=== PATIENT | female | born 1950 | race American Indian/Alaskan Native ===

== ENCOUNTER 2016-08-27 23:05 | Inpatient (IN) | payer MEDICARE, OTHER ==
[2016-08-27 23:41] LABS: Basophils % (Auto) 0.5 % (0.0-1.8); Eosinophils % (Auto) 1.6 % (0.0-4.3); Hematocrit 40.5 % (30.3-42.9); Hemoglobin 13.5 gm/dl (10.1-14.3); Mean Corpuscular HGB Conc 33 % (30-34); Mean Corpuscular Hemoglobin 30 pg (28-32); Mean Corpuscular Volume 91 fl (79-97); Platelet Count 188 K/mm3 (140-440); Red Blood Count 4.48 M/mm3 (3.65-5.03); White Blood Count 4.8 K/mm3 (4.5-11.0)
[2016-08-28 00:03] LABS: Anion Gap 15 mmol/L; Blood Urea Nitrogen 11 mg/dL (7-17); Carbon Dioxide 27 mmol/L (22-30); Chloride 97.2 mmol/L (98-107); Glucose 118 mg/dL (65-100); Potassium 3.7 mmol/L (3.6-5.0); Sodium 135 mmol/L (137-145)
[2016-08-28 00:23] LABS: Bacteria,Urine 1+ /HPF (Negative); Bilirubin,Urine NEG (Negative); Blood,Urine SM (Negative); Ketones,Urine NEG (Negative); Leukocyte Esterase,Urine NEG (Negative); Mucus,Urine 2+ /HPF; Nitrite,Urine NEG (Negative); Protein,Urine <15 mg/dL mg/dL (Negative); Urobilinogen,Urine < 2.0 mg/dL (<2.0)
--- NOTE | 2016-08-28 06:16 | Emergency Department Report ---
ED Chest Pain HPI - General Chief Complaint: Chest Pain Stated Complaint: CHEST PAIN Time Seen by Provider: 08/28/16 06:11 Source: patient Mode of arrival: Ambulatory Limitations: No Limitations - History of Present Illness Initial Comments: Patient complains of anterior chest tightness which periodically radiates to both arms over the last week. This is her first medical contact. Became more persistent last night. She states that she takes isosorbide and goes to the [place]. She is status post a stent she thinks about 3 years ago. She states she has been here before but I do not find any record of this patient in the [employer] [facility] system. She does not have a quality control representative in this area other than at the [facility]. She does not complain of any acute shortness of breath at rest but states he has been sometimes dyspneic. He states that she's had some nausea and some sweating but nothing like that now. At this point she has mild residual pain only. MD Complaint: chest pain -: week(s) Onset: during rest Pain Location: substernal Pain Radiation: RUE, LUE Severity: mild, moderate Quality: pressure Consistency: intermittent Improves With: nothing Worsens With: nothing Context: other (history of PCI) re: nausea, dyspnea Other Symptoms: denies: cough, fever, syncope Treatments Prior to Arrival: none Aspirin use within the Past 7 Days: (1) Yes - Related Data On Oral Contraceptives: No Allergies Allergy/AdvReac Type Severity Reaction Status Date / Time No Known Allergies Allergy Unverified 02/16/16 12:56 DALIA score - Dalia Score Age > 65: (1) Yes Aspirin use within the Past 7 Days: (1) Yes 3 or more CAD Risk Factors: (0) No 2 or more Angina events in past 24 hrs: (1) Yes Known CAD with more than 50% Stenosis: (1) Yes Elevated Cardiac Markers: (0) No ST Deviation Greater than 0.5mm: (0) No DALIA Score: 4 ED Review of Systems ROS: Stated complaint: CHEST PAIN Other details as noted in HPI Constitutional: denies: chills, fever Eyes: denies: eye pain, eye discharge, vision change ENT: denies: ear pain, throat pain Respiratory: shortness of breath. denies: cough, wheezing Cardiovascular: chest pain. denies: palpitations Endocrine: no symptoms reported Gastrointestinal: nausea. denies: abdominal pain, vomiting, diarrhea Genitourinary: denies: urgency, dysuria, discharge Musculoskeletal: denies: back pain, joint swelling, arthralgia Skin: denies: rash, lesions Neurological: denies: headache, weakness, paresthesias Psychiatric: denies: anxiety, depression Hematological/Lymphatic: denies: easy bleeding, easy bruising ED Past Medical Hx - Past Medical History Previous Medical History?: Yes Hx Hypertension: Yes Hx Arthritis: Yes Additional medical history: sleep apnea, uses CPAP at home - Surgical History Additional Surgical History: History of coronary artery stent - Social History Substance Use Type: None ED Physical Exam - General Limitations: No Limitations General appearance: alert, in no apparent distress - Head Head exam: Present: atraumatic, normocephalic - Eye Eye exam: Present: normal appearance, PERRL, EOMI. Absent: scleral icterus - ENT ENT exam: Present: mucous membranes moist - Neck Neck exam: Present: normal inspection. Absent: tenderness, meningismus - Respiratory Respiratory exam: Present: normal lung sounds bilaterally. Absent: respiratory distress - Cardiovascular Cardiovascular Exam: Present: regular rate, normal rhythm. Absent: systolic murmur, diastolic murmur, rubs, gallop - GI/Abdominal GI/Abdominal exam: Present: soft, normal bowel sounds. Absent: distended, tenderness, guarding, rebound, rigid - Extremities Exam Extremities exam: Present: normal inspection - Back Exam Back exam: Present: normal inspection - Neurological Exam Neurological exam: Present: alert, oriented X3, CN II-XII intact. Absent: motor sensory deficit - Psychiatric Psychiatric exam: Present: normal affect, normal mood - Skin Skin exam: Present: warm, dry, intact, normal color. Absent: rash ED Course Vital Signs 08/27/16 08/28/16 08/28/16 23:20 05:54 06:00 Temperature 98.5 F Pulse Rate 72 65 66 Respiratory 20 10 L 12 Rate Blood Pressure 155/98 128/84 Blood Pressure 138/85 [Right] O2 Sat by Pulse 99 97 98 Oximetry 08/28/16 08/28/16 08/28/16 06:10 06:20 06:30 Temperature Pulse Rate 65 63 66 Respiratory 12 20 15 Rate Blood Pressure 128/84 128/84 128/84 Blood Pressure [Right] O2 Sat by Pulse 95 94 97 Oximetry 08/28/16 08/28/16 08/28/16 06:40 06:50 06:56 Temperature Pulse Rate 66 67 66 Respiratory 16 18 16 Rate Blood Pressure 128/84 128/84 Blood Pressure 128/84 [Right] O2 Sat by Pulse 97 96 97 Oximetry 08/28/16 08/28/16 07:00 07:10 Temperature Pulse Rate 63 64 Respiratory 9 L 12 Rate Blood Pressure 128/84 130/77 Blood Pressure [Right] O2 Sat by Pulse 98 97 Oximetry - Reevaluation(s) Reevaluation #1: Patient was clinically stable and only mildly symptomatic. Her workup so far was negative. She is admitted by Dr. Barlow to the hospitalist service. I will place cardiology consultation. She was given Lovenox aspirin and analgesia. 08/28/16 08:25 ED Medical Decision Making - Lab Data Result diagrams: 08/27/16 23:29 08/27/16 23:29 Laboratory Results - last 24 hr 08/27/16 08/27/16 08/27/16 23:29 23:29 23:53 WBC 4.8 RBC 4.48 Hgb 13.5 Hct 40.5 MCV 91 MCH 30 MCHC 33 RDW 13.0 L Plt Count 188 Lymph % (Auto) 42.0 H [place] % (Auto) 8.9 H Eos % (Auto) 1.6 Baso % (Auto) 0.5 Lymph # 2.0 [place] # 0.4 Eos # 0.1 Baso # 0.0 Seg Neutrophils % 47.0 Seg Neutrophils # 2.3 Sodium 135 L Potassium 3.7 Chloride 97.2 L Carbon Dioxide 27 Anion Gap 15 BUN 11 Creatinine 1.0 Estimated GFR > 60 BUN/Creatinine Ratio 11.00 Glucose 118 H Calcium 9.0 Troponin T < 0.010 Urine Color Yellow Urine Turbidity Clear Urine pH 5.0 Ur Specific [place] 1.018 Urine Protein <15 mg/dl Urine Glucose (UA) Neg Urine Ketones Neg Urine Blood Sm Urine Nitrite Neg Urine Bilirubin Neg Urine Urobilinogen < 2.0 Ur Leukocyte Esterase Neg Urine WBC (Auto) 4.0 Urine RBC (Auto) 3.0 U Epithel Cells (Auto) < 1.0 Urine Bacteria (Auto) 1+ Urine Mucus 2+ 08/28/16 08/28/16 02:27 05:24 WBC RBC Hgb Hct MCV MCH MCHC RDW Plt Count Lymph % (Auto) [place] % (Auto) Eos % (Auto) Baso % (Auto) Lymph # [place] # Eos # Baso # Seg Neutrophils % Seg Neutrophils # Sodium Potassium Chloride Carbon Dioxide Anion Gap BUN Creatinine Estimated GFR BUN/Creatinine Ratio Glucose Calcium Troponin T < 0.010 < 0.010 Urine Color Urine Turbidity Urine pH Ur Specific [place] Urine Protein Urine Glucose (UA) Urine Ketones Urine Blood Urine Nitrite Urine Bilirubin Urine Urobilinogen Ur Leukocyte Esterase Urine WBC (Auto) Urine RBC (Auto) U Epithel Cells (Auto) Urine Bacteria (Auto) Urine Mucus - EKG Data -: EKG Interpreted by Me EKG shows normal: sinus rhythm, axis, intervals, ST-T waves Rate: normal - EKG Data When compared to previous EKG there are: previous EKG unavailable Interpretation: other (somewhat increased voltage) - Radiology Data interpreted by me: No acute finding Critical care attestation.: If time is entered above; I have spent that time in minutes in the direct care of this critically ill patient, excluding procedure time. ED Disposition Clinical Impression: Chest pain Qualifiers: Chest pain type: unspecified Qualified Code(s): R07.9 - Chest pain, unspecified Coronary artery disease Qualifiers: Coronary Disease-Associated Artery/Lesion type: [place] artery [place] vs. transplanted heart: [place] heart Associated angina: with unstable angina Qualified Code(s): I25.110 - Atherosclerotic heart disease of [place] coronary artery with unstable angina pectoris Disposition: OP ADMITTED IP TO THIS HOSP Is pt being admited?: Yes Does the pt Need Aspirin: Yes Condition: Stable Instructions: Chest Pain (ED) Referrals: PRIMARY CAREMD [Primary Care Provider] - 3-5 Days Time of Disposition: 08:28
[2016-08-28] MEDS ORDERED: ZOFRAN IV ONE (06:38)
[2016-08-28] MEDS ORDERED: MORPHINE IV ONE (06:38)
[2016-08-28] MEDS ORDERED: LOVENOX SUB-Q ONE (06:38)
[2016-08-28] MEDS ORDERED: BABY ASPIRIN PO ONE (06:38)
[2016-08-28 07:02] LABS: Alanine Aminotransferase 8 units/L (7-56); Albumin 4.1 g/dL (3.9-5); Albumin/Globulin Ratio 1.4 %; Alkaline Phosphatase 83 units/L (35-129); Bilirubin,Total 0.6 mg/dL (0.1-1.2)
[2016-08-28 07:03] LABS: INR 1.01 (0.87-1.13)
[2016-08-28 07:04] LABS: Partial Thromboplastin Time 31.3 Sec. (24.2-36.6)
[2016-08-28 07:08] LABS: Bilirubin,Direct < 0.2 mg/dL (0-0.2); Bilirubin,Indirect 0.4 mg/dL
--- NOTE | 2016-08-28 09:57 | XRay Report ---
AP CHEST: HISTORY: chest pain AP view of the chest demonstrates a normal mediastinal and cardiac contour with clear lungs and normal bony and soft tissue structures. IMPRESSION: Unremarkable AP chest.
[2016-08-28] MEDS ORDERED: SODIUM CHLORIDE FLUSH SYRINGE 10 ML IV PRN (10:25)
[2016-08-28] MEDS ORDERED: TENORMIN PO SCH (11:00)
[2016-08-28 11:28] LABS: Creatine Kinase 53 units/L (30-135)
[2016-08-28 11:30] LABS: Creatine Kinase MB < 1.0 ng/mL (0.0-4.0)
[2016-08-28] MEDS: MORPHINE IV PRN ×2 (12:42→20:04)
[2016-08-28] MEDS: NITRO-BID 2% TP SCH (14:00)
[2016-08-28 15:48] LABS: Creatine Kinase 55 units/L (30-135)
[2016-08-28 15:53] LABS: Creatine Kinase MB < 1.0 ng/mL (0.0-4.0)
[2016-08-28 16:54] LABS: Creatine Kinase 57 units/L (30-135); Creatine Kinase MB 1.1 ng/mL (0.0-4.0)
--- NOTE | 2016-08-28 19:52 | History and Physical Report ---
History of Present Illness Date of examination: 08/28/16 Date of admission: 08/28/16 08:31 Chief complaint: Chest pain, 3-4 days duration History of present illness: Patient is a 66-year-old lady was a history of coronary artery disease status post stent placement, previous ago started having left-sided chest pain. 8/10 in severity. Radiating down the left arm. Associated with shortness of breath and diaphoresis. Intermittent. Nonexertional. Off and on for the past 3-4 days. Became very severe yesterday as if somebody was standing on my chest. Had nausea vomiting 3. Took aspirin and antacids in attempt to relieve the pain. The symptoms persisted. Patient came to the emergency department. EKG unremarkable. Initial troponin level was normal. However has severely elevated lipid levels. Admission was therefore requested for further evaluation and workup for chest pain Past History Past Medical History: CAD, hypertension, other (back pain) Past Surgical History: PTCA Social history: lives with family. denies: smoking, alcohol abuse, prescription drug abuse, IV drug use Family history: other (mypcardial infarction in her mother at age 59, and history of diabetes mellitus) Medications and Allergies Allergies Allergy/AdvReac Type Severity Reaction Status Date / Time No Known Allergies Allergy Unverified 02/16/16 12:56 Home Medications Medication Instructions Recorded Confirmed Last Taken Type Aspirin [Aspirin TAB] 325 mg PO QDAY 08/28/16 08/28/16 Unknown History Atenolol [Tenormin] mg PO DAILY 08/28/16 Unknown History Isosorbide Mononitrate mg PO 08/28/16 Unknown History Meloxicam [Mobic] 15 mg PO 08/28/16 Unknown History Oxycodone HCl/Acetaminophen 1 each PO Q6HR PRN 08/28/16 08/28/16 Unknown History [Percocet 10/325 mg] traZODone [Desyrel] 100 mg PO QHS 08/28/16 08/28/16 Unknown History Active Meds: Active Medications Aspirin (Ecotrin) 325 mg PO QDAY [facility] Atenolol (Tenormin) 50 mg PO DAILY [facility] Last Admin: 08/28/16 11:47 Dose: 50 mg Famotidine (Pepcid) 20 mg PO BID [facility] Morphine Sulfate (Morphine) 2 mg IV Q6HR PRN PRN Reason: Chest Pain Last Admin: 08/28/16 12:42 Dose: 2 mg Nitroglycerin (Nitro-Bid 2%) 1 inch TP BIDNTG LUCIA PRN Reason: Protocol Last Admin: 08/28/16 14:00 Dose: Not Given Sodium Chloride (Sodium Chloride Flush Syringe 10 Ml) 10 ml IV PRN PRN PRN Reason: LINE FLUSH Trazodone HCl (Desyrel) 100 mg PO QHS [facility] Review of systems Constitutional: Well Nouridhed and Well developed. Head: NC/ AT Eyes: Denies any visual impairments. No discharge from the eyes Nose: Denies any rhinorrhea or epistaxis Throats: Denies any post nasal drainage. Ears: Denies any hearing deficits Cardiovascular system: Has chest pain, shortness of breath, denies orthopnea, paroxysmal nocturnal dyspnea, or palpitation. Respiratory system: Denies any cough, difficulty breathing, wheezing, pleuritic chest pain, Gastrointestinal system: Denies any abdominal pain, nausea vomiting, hematemesis or melena. Neurological system: Denies any headache, slurred speech, facial droop, lateralizing weakness Genitalia system: Denies any dysuria, urinary frequency or urgency, urethral discharge Skin: No rashes, hyperpigmented spots. Hematological: Denies any cervical tenderness hemorrhages or petechia. Immunological: Denies any multiple septic spots, Lymphatic: Denies any generalized lymphadenopathy. Endocrine: Denies any polyuria, polydipsia, polyphagia. No heat or cold intolerance. Musculoskeletal system: No joint pain or swelling. Psych: No visual, tactile, auditory or hallucination Exam - Constitutional Vitals: Temp Pulse Resp BP Pulse Ox 98.4 F 70 16 99/59 96 08/28/16 17:54 08/28/16 17:54 08/28/16 17:54 08/28/16 17:54 08/28/16 17:54 General appearance: Present: no acute distress, well-nourished - EENT Eyes: Present: PERRL ENT: hearing intact, clear oral mucosa - Neck Neck: Present: supple, normal ROM - Respiratory Respiratory effort: normal Respiratory: bilateral: CTA - Cardiovascular Heart Sounds: Present: S1 & S2. Absent: rub, click - Extremities Extremities: pulses symmetrical, No edema Peripheral Pulses: within normal limits - Abdominal General gastrointestinal: Present: soft, non-tender, non-distended, normal bowel sounds Female genitourinary: Present: normal - Integumentary Integumentary: Present: clear, warm, dry - Musculoskeletal Musculoskeletal: gait normal, strength equal bilaterally - Psychiatric Psychiatric: appropriate mood/affect, intact judgment & insight - Neurologic Neurologic: CNII-XII intact, moves all extremities Results - Labs CBC & Chem 7: 08/27/16 23:29 08/27/16 23:29 Labs: Abnormal lab results 08/28/16 Range/Units 10:45 Triglycerides 195 H (2-149) mg/dL Cholesterol 271 H (50-199) mg/dL LDL Cholesterol Direct 189 H (50-130) mg/dL Assessment and Plan 1. Chest pain atypical: Patient commenced on oxygen nitroglycerin aspirin and morphine. Stress thallium in the morning as serial cardiac enzymes were normal 2. Carotid disease status post stent placement. Commence patient on beta blockers atorvastatin lisinopril 3. Hyperlipidemia: Commence patient on high dose statin therapy atorvastatin 80 mg daily. 4. Hypertension: Carvedilol 1.5 mg twice a day, 5. DVT prophylaxis with Lovenox and GI prophylaxis with Pepcid. Spent 32 minutes in direct patient care review of laboratory and radiology data during this admission process
[2016-08-28] MEDS: COREG PO SCH (21:36)
[2016-08-28] MEDS: PEPCID PO SCH (21:36)
[2016-08-28] MEDS ORDERED: DESYREL PO SCH (22:00)
[2016-08-29] MEDS ORDERED: ECOTRIN PO SCH (10:00)
[2016-08-29] MEDS ORDERED: BABY ASPIRIN PO SCH (10:00)
[2016-08-29] MEDS ORDERED: LEXISCAN IV ONE ×2 (11:17→11:29)
--- NOTE | 2016-08-29 13:01 | Discharge Summary ---
Providers - Providers Date of Admission: 08/28/16 08:31 Date of discharge: 08/29/16 Attending physician: FRANCISCO KAPADIA 08/28/16 Consult to Cardiac Rehabilitation [CONS] Routine Reason For Exam: Phase I Primary care physician: [employer] Hospitalization Reason for admission: chest pain Condition: Good Hospital course: krystal is a 66-year-old lady was a history of coronary artery disease status post stent placement, previous ago started having left-sided chest pain. 8/10 in severity. Radiating down the left arm. Associated with shortness of breath and diaphoresis. Intermittent. Nonexertional. Off and on for the past 3-4 days. Became very severe yesterday as if somebody was standing on my chest. Had nausea vomiting 3. Took aspirin and antacids in attempt to relieve the pain. The symptoms persisted. Patient came to the emergency department. EKG unremarkable. Cardiac isoenzymes are found to be negative. Admission was therefore requested for further evaluation and workup for chest pain. Patient underwent stress thallium which was found to be negative. Patient is felt to have received maximal hospital benefit. Etiology is likely secondary to GERD. Dedicated discharge time 35 minutes. Disposition: DISCHARGED TO HOME OR SELFCARE Time spent for discharge: 35 - Discharge Diagnoses (1) GERD (gastroesophageal reflux disease) Status: Acute Qualifiers: Esophagitis presence: E (2) Chest pain Status: Resolved Qualifiers: Chest pain type: unspecified Qualified Code(s): R07.9 - Chest pain, unspecified (3) Coronary artery disease Status: Chronic Qualifiers: Coronary Disease-Associated Artery/Lesion type: [place] artery [place] vs. transplanted heart: [place] heart Associated angina: with unstable angina Qualified Code(s): I25.110 - Atherosclerotic heart disease of [place] coronary artery with unstable angina pectoris Core Measure Documentation - Palliative Care Palliative Care/ Comfort Measures: Not Applicable - Core Measures Any of the following diagnoses?: none Exam - Constitutional Vitals: Temp Pulse Resp BP Pulse Ox 98.6 F 79 20 143/77 98 08/29/16 07:53 08/29/16 11:29 08/29/16 07:53 08/29/16 11:29 08/29/16 10:24 General appearance: Present: no acute distress, well-nourished - EENT Eyes: Present: PERRL ENT: hearing intact, clear oral mucosa - Neck Neck: Present: supple, normal ROM - Respiratory Respiratory effort: normal Respiratory: bilateral: CTA - Cardiovascular Heart Sounds: Present: S1 & S2. Absent: rub, click - Extremities Extremities: pulses symmetrical, No edema Peripheral Pulses: within normal limits - Abdominal General gastrointestinal: Present: soft, non-tender, non-distended, normal bowel sounds Female genitourinary: Present: normal - Integumentary Integumentary: Present: clear, warm, dry - Musculoskeletal Musculoskeletal: gait normal, strength equal bilaterally - Psychiatric Psychiatric: appropriate mood/affect, intact judgment & insight - Neurologic Neurologic: CNII-XII intact, moves all extremities Plan Activity: no restrictions Weight Bearing Status: Full Weight Bearing Diet: low fat, low cholesterol Special Instructions: smoking cessation Follow up with: PRIMARY CARE,MD [Primary Care Provider] - 3-5 Days Prescriptions: Aspirin EC [Aspirin Enteric Coated TAB] 325 mg PO QDAY #30 tablet AtorvaSTATin [Lipitor] 40 mg PO QHS #30 tablet Famotidine [Pepcid] 20 mg PO BID #60 tablet Oxycodone HCl/Acetaminophen [Percocet 10/325 mg] 1 each PO Q6HR PRN #15 tablet PRN Reason: Pain
[2016-08-29 13:05] VITALS: BP 137/86
[2016-08-29] MEDS: PEPCID PO SCH (13:28)
[2016-08-29] MEDS: COREG PO SCH (13:28)
[2016-08-29] MEDS: NITRO-BID 2% TP SCH (13:29)
--- NOTE | 2016-08-29 13:41 | Admit Criteria Form ---
Admission Criteria Documentation: CARDIOLOGY GRG Clinical Indications for Admission to Inpatient Care ( Place 'X' for any and all applicable criteria): Hospital admission is needed for appropriate care of the patient because of ANY ONE of the following (1): [ ] I. Hemodynamic instability as indicated by ALL of the following (1)(2)(3) (4)(5) [ ]a) Vital signs or other findings not as expected for chronic patient condition or baseline [ ]b) Instability indicated by ANY ONE of the following: [ ]i) Hypotension [ ]ii) Symptomatic Tachycardia unresponsive to treatment ( e.g., analgesia, fluids, sedation as indicated) [ ]iii) Inadequate perfusion indicated by ANY ONE of the following: [ ] 1) Lactic acidosis (> 2 mmol/L) [ ] 2) New abnormal capillary refill (> 3 seconds) [ ] 3) Reduced urine output [ ] 4) New altered mental status [ ]iv) Orthostatic vital sign changes unresponsive to treatment (e.g., fluids) [ ]v) IV inotropic or vasopressor medication required to maintain adequate blood pressure or perfusion [ ] II. Severe heart failure as indicated by ANY ONE of the following(17)(18) [ ]a) Respiratory distress [ ]b) Hypotension [ ]c) Anasarca (refractory to outpatient therapy) [ ]d) Cardiac arrhythmias of immediate concern [ ]e) Myocardial ischemia [ ] III. Cardiac arrhythmias or findings of immediate concern indicated by ANY ONE of the following (19)(20): [ ] a) Heart rhythms that are inherently dangerous or unstable indicated by ANY ONE of the following (21)(22)(23): [ ] i) Resuscitated ventricular fibrillation or cardiac arrest [ ] ii) Ventricular escape rhythm [ ] iii) Sustained ventricular tachycardia (30 seconds or more of ventricular rhythm at greater than 100 beats per minute) [ ] iv) Nonsustained ventricular tachycardia and ANY ONE of the following: [ ] 1) Suspected cardiac ischemia as cause or consequence of ventricular tachycardia [ ] 2) In setting of acute myocarditis [ ] b) Unstable cardiac conduction defects indicated by ANY ONE of the following(23)(24)(25) [ ] i) Type II second-degree atrioventricular block [ ]ii) Third-degree atrioventricular block [ ]iii) New-onset left bundle branch block with suspected myocardial ischemia [ ]c) Any heart rhythm and ANY ONE of the following (21)(22)(26)(27) (28) [ ] i) Continuous long-term ECG monitoring needed (e.g., initiation of drug requiring monitoring for more than 24 hours) [ ] ii) Patient has automatic implanted cardioverter defibrillator that is repeatedly firing, malfunctioning, or in need of immediate adjustment of settings beyond the scope of ambulatory or observation care [ ]d) Heart rhythms of concern due to ANY ONE of the following: [ ] i) Hypotension [ ] ii) Respiratory distress [ ] iii) Association with other significant symptoms (e.g., bradycardia with syncope or ongoing dizziness, supraventricular tachycardia with chest pain (14)(15)(17) [ ] IV. Monitoring for cardiac contusion beyond the scope of observation care needed [A](30)(31)(32) [ ] V. Surgical or device complication (e.g., valve replacement complication , pacemaker dysfunction) (35)(41)(44)(45)(46) [ ] . Inpatient palliative care needed. [B](49) Also use Inpatient Palliative Care Criteria [ ] VII. Nonbacterial thrombotic (marantic) endocarditis (36)(43)(47)(48) [X ] VIII. Cardiology condition, symptom, or finding for which emergency and observation care has failed or are not considered appropriate. [ ] IX. Acute valvular disease requiring inpatient as indicated by ANY ONE of the following (41) [ ]a) Acute valvular regurgitation (42) [ ]b) Noninfectious valvulitis (43) [ ]c) Obstructive valve thrombosis [ ]d) Paravalvular leak [ ]e) Other significant valvular disorder remaining after emergency or observation level of care (as appropriate) [ ]X. Pericardial disease requiring inpatient treatment as indicated by ANY ONE of the following (33)(34)(35)(36)(37) [ ]a) Suspected tamponade (38)(39)(40) [ ]b) Hemopericardium [ ]c) Other significant pericardial disorder remaining after emergency or observation level of care (as appropriate) [ ] XI. Cardiac ischemia beyond scope of emergency and observation care. [ ] XII. Hypertension requiring inpatient treatment as indicated by ANY ONE of the following (6)(7)(8) [ ]a) SBP greater than 220 mm Hg or DBP greater than 120 mmHg despite treatment [ ]b) SBP greater than 140 mm Hg or DBP greater than 100 mm Hg with evidence of acute end organ damage as indicated by ANY ONE of the following [ ] i) Altered mental status [ ] ii) Acute renal failure as indicated by new onset of ANY ONE of the following (9)(10)(11)(12)(13) [ ]1) 3-fold rise in serum creatinine from baseline [ ]2) Serum creatinine greater than 4 mg/dL ( 354 micromoles/L) with acute rise greater than 0.5 mg/dL (44.2 micromoles/L) [ ]3) Reduction of more than 75% in estimated glomerular filtration rate from baseline [ ]4) Estimated glomerular filtration rate less than 35 mL/min/1.73m2 (0.59 mL/sec/1.73m2) in child up to 18 years of age [ ]5) Cessation of urine output indicated by ALL of the following [ ]A. Adequate volume status [ ]B. Inadequate urine output as indicated by ANY ONE of the following [ ]a. Urine output less than 0.3 mL/kg/hr for 24 hours [ ]b. Anuria (urine output less than 0.1 mL/kg/hr) for 12 hours [ ] iii) Aortic dissection [ ] iv) Myocardial Ischemia [ ] v) Left ventricular heart failure [ ]vi) Retinal Hemorrhage [ ]vii) Other significant finding [ ]c) Hypertension in child requiring inpatient treatment as indicated by ALL of the following(14)(15)(16) [ ] i) Outpatient treatment not effective, not available, or not appropriate [ ]ii) SBP or DBP greater than 95th percentile for age [ ]iii) Evidence of acute end organ damage as indicated by ANY ONE of the following [ ]1) Altered mental status [ ]2) Acute renal failure as indicated by new onset of ANY ONE of the following(9)(10)(11)(12)(13) [ ]A. 3-fold rise in serum creatinine from baseline [ ]B. Serum creatinine greater than 4 mg/dL (354 micromoles/L) with acute rise greater than 0.5 mg/dL (44.2 micromoles/L) [ ]C. Reduction of more than 75% in estimated glomerular filtration rate from baseline [ ]D. Estimated glomerular filtration rate less than 35 mL/min/1.73m2 (0.59 mL/sec/1.73m2) in child up to 18 years of age [ ]E. Cessation of urine output indicated by ALL of the following [ ]a. Adequate volume status [ ]b. Inadequate urine output as indicated by ANY ONE of the following [ ]i) Urine output less than 0.3 mL/kg/hr for 24 hours [ ]ii) Anuria ( urine output less than 0.1 mL/kg/hr) for 12 hours [ ]3) Severe headache [ ]4) Visual disturbance [ ]5) Retinal hemorrhage [ ]6) Other significant finding [ ]XIII. Complications of transplanted heart indicated by ANY ONE of the following(61): [ ]a) Acute graft rejection requiring inpatient management (eg, intravenous immunosuppression)(62)(63) [ ]b) Acute graft heart failure indicated by ANY ONE of the following(64): [ ]i) Hemodynamic instability [ ]ii) Cardiac arrhythmias of immediate concern [ ]iii) Pulmonary edema that is very severe (eg, mechanical ventilation needed, imminent or likely, need for 100% oxygen to keep oxygen saturation above 90%) [ ]iv) Pulmonary edema that is persistent as indicated by ALL of the following: [ ]1) New need for oxygen therapy to keep oxygen saturation above 90% (or increased FiO2 need from baseline) [ ]2) Has not improved sufficiently with emergency department or observation care IV diuretics or other heart failure treatments[E] [ ]v) Altered mental status that is severe or persistent [ ]vi) Increased creatinine (new on laboratory test) with reduction of more than 50% in estimated glomerular filtration rate from baseline [ ]vii) Progressively (ongoing) rising creatinine (known from past laboratory test) with reduction of more than 25% in estimated glomerular filtration rate from baseline [ ]viii) Acute renal failure [ ]ix) Acute peripheral ischemia (eg, examination shows pulseless, cool, mottled, or cyanotic extremity) [ ]x) Pulmonary artery catheter monitoring needed [ ]xi) Other sign or symptom of heart failure requiring inpatient treatment (ie, too severe or not responsive to outpatient and observation care treatment) [ ]c) Infection requiring inpatient management (eg, Hemodynamic instability, need for intravenous antimicrobial treatment)(66)(67)(68)(69)(70) [ ]d) Cardiac allograft vasculopathy requiring inpatient management ( eg evidence of cardiac ischemia)(71) [ ]e) Other complication of transplanted heart (eg, stroke, severe pulmonary hypertension, severe valvular dysfunction) requiring inpatient management(72) The original [facility] [employer] content created by [facility] has been revised. The portions of the content which have been revised are identified through the use of italic text or in bold, and [facility] has neither reviewed nor approved the modified material. All other unmodified content is copyright [facility] [employer]. Please see references footnoted in the original [facility] [employer] edition 2016 Admission Criteria Met: Yes
--- NOTE | 2016-08-29 15:14 | Treadmill Report ---
STRESS THALLIUM Resting myocardial perfusion images revealed homogeneous radioisotope uptake. On post-Lexiscan scan, perfusion images revealed heterogeneous radioisotope activity. There is no evidence of perfusion abnormality. Gated scan revealed ejection fraction of 65%. Right ventricle appeared normal. IMPRESSION: This test is negative for ischemia. Electrocardiogram was unremarkable. JOB# [id number] SOHAM/DIANDRA
== END 2016-08-29 16:52 | disposition home or self-care (01) | DRG 392 ==
LOC: ED 23:05 → 4A 08-28 08:31
PROVIDERS: ADMIT Family Medicine; ATTEND Hospitalist
DX: K21.9 Gastro-esophageal reflux disease without esophagitis (principal); I25.10 Atherosclerotic heart disease of native coronary artery without angina pectoris; E78.5 Hyperlipidemia, unspecified; I10 Essential (primary) hypertension; M19.90 Unspecified osteoarthritis, unspecified site; R07.89 Other chest pain; G47.30 Sleep apnea, unspecified; Z82.49 Family history of ischemic heart disease and other diseases of the circulatory system; Z83.3 Family history of diabetes mellitus; Z79.82 Long term (current) use of aspirin; Z95.5 Presence of coronary angioplasty implant and graft
CPT/HCPCS: 36415; 71010; 78452; 80048; 80061; 80074; 81001; 82550; 82553; 83880; 84484; 85025; 85610; 85730; 93005; 93010; 93017; 94760; 96374; 96375; A9270-GY; A9502; J1650; J2270; J2405; J2785

== ENCOUNTER 2016-09-18 01:33 | Emergency (ER) | payer MEDICARE, OTHER ==
[2016-09-18] MEDS ORDERED: ADRENALIN ONE (01:35)
--- NOTE | 2016-09-18 01:41 | Emergency Department Report ---
ED CPR HPI - General Stated Complaint: CARDIAC ARREST Time Seen by Provider: 09/18/16 01:40 - History of Present Illness Initial Comments: This is a 66-year-old female brought in cardiac arrest. She was last seen by her about 20 minutes prior to the arrest. Down time is presumed to be around 00 50. EMS arrived on scene at 0106. They found the patient to be in asystole. Patient had a Combitube placed as well as an IO placed. She was given 2 rounds of epinephrine. She continued to have asystole rhythm. She is brought to our ED at this time for further evaluation and care. is not able to provide any significant meaningful past medical history. He has indicated that she seemed to be doing fine earlier in the day. She apparently was eating in bed or to this event. - Related Data Home Medications Medication Instructions Recorded Confirmed Last Taken Aspirin [Aspirin TAB] 325 mg PO QDAY 08/28/16 08/28/16 Unknown Atenolol [Tenormin] mg PO DAILY 08/28/16 Unknown Isosorbide Mononitrate mg PO 08/28/16 Unknown traZODone [Desyrel] 100 mg PO QHS 08/28/16 08/28/16 Unknown Previous Rx's Medication Instructions Recorded Last Taken Type Aspirin EC [Aspirin Enteric Coated 325 mg PO QDAY #30 tablet 08/29/16 Unknown Rx TAB] AtorvaSTATin [Lipitor] 40 mg PO QHS #30 tablet 08/29/16 Unknown Rx Famotidine [Pepcid] 20 mg PO BID #60 tablet 08/29/16 Unknown Rx Oxycodone HCl/Acetaminophen 1 each PO Q6HR PRN #15 tablet 08/29/16 Unknown Rx [Percocet 10/325 mg] Allergies Allergy/AdvReac Type Severity Reaction Status Date / Time No Known Allergies Allergy Unverified 02/16/16 12:56 ED Review of Systems ROS: Stated complaint: CARDIAC ARREST Other details as noted in HPI Comment: Unobtainable due to pts medical conditions ED Past Medical Hx - Past Medical History Hx Hypertension: Yes Hx Arthritis: Yes Additional medical history: sleep apnea, uses CPAP at home - Surgical History Additional Surgical History: History of coronary artery stent - Social History Smoking Status: Never Smoker - Medications Home Medications: Home Medications Medication Instructions Recorded Confirmed Last Taken Type Aspirin [Aspirin TAB] 325 mg PO QDAY 08/28/16 08/28/16 Unknown History Atenolol [Tenormin] mg PO DAILY 08/28/16 Unknown History Isosorbide Mononitrate mg PO 08/28/16 Unknown History traZODone [Desyrel] 100 mg PO QHS 08/28/16 08/28/16 Unknown History Aspirin EC [Aspirin Enteric Coated 325 mg PO QDAY #30 tablet 08/29/16 Unknown Rx TAB] AtorvaSTATin [Lipitor] 40 mg PO QHS #30 tablet 08/29/16 Unknown Rx Famotidine [Pepcid] 20 mg PO BID #60 tablet 08/29/16 Unknown Rx Oxycodone HCl/Acetaminophen 1 each PO Q6HR PRN #15 tablet 08/29/16 Unknown Rx [Percocet 10/325 mg] ED Physical Exam - General Limitations: Other (cardiac arrest) General appearance: other (warm to the touch. Combitube in place.) - Head Head exam: Present: atraumatic, normocephalic - Eye Eye exam: Present: other (fixed and dilated pupils) - ENT ENT exam: Present: mucous membranes moist (Combitube in place), other - Neck Neck exam: Absent: lymphadenopathy, thyromegaly - Respiratory Respiratory exam: Present: other (good clear respirations on the right. Minimal breath sounds on the left.) - Cardiovascular Cardiovascular Exam: Present: other (CPR in progress. Good distal pedal and distal radial pulses with CPR noted.) - GI/Abdominal GI/Abdominal exam: Present: other (obese). Absent: distended, organomegaly, pulsatile mass - External exam: Present: normal external exam - Extremities Exam Extremities exam: Present: normal inspection. Absent: pedal edema - Back Exam Back exam: Present: other (no obvious trauma or bony step-offs noted.) - Neurological Exam Neurological exam: Present: other (no neurologic activity. No spontaneous movement of extremities. Absent reflexes.) - Skin Skin exam: Present: warm, dry, intact ED Course - Reevaluation(s) Reevaluation #1: 09/18/16 01:45 CPR was continued upon presentation here. She was noted to continue be in asystole. We did review H's and T's. There is some question on mind whether the Combitube with appropriate place. The EMT on scene did indicate that he did have good breath sounds initially bilaterally. I did consider switching ET tube but given the long down time and continueasystole I'm not inclined to be trying to perform any more hard rock measures at this point. I think her neurologic outcome would be very poor at this point. One more round of epinephrine was given as well. This had no change in the rhythm. Decision was ultimately made to pronounce patient at 0 135. I did inform family of the unfortunate news. Appropriate calls were made regarding certificate etc. Critical care attestation.: If time is entered above; I have spent that time in minutes in the direct care of this critically ill patient, excluding procedure time. ED Disposition Clinical Impression: Cardiac arrest Disposition: Is pt being admited?: No Does the pt Need Aspirin: No Condition: Stable Time of Disposition: 01:41
== END 2016-09-18 03:53 ==
LOC: ED 01:33
DX: I46.9 Cardiac arrest, cause unspecified (principal); I10 Essential (primary) hypertension; M19.90 Unspecified osteoarthritis, unspecified site
CPT/HCPCS: 92950; J0171